=== PATIENT | male | born 1960 | race Caucasian/White ===

== ENCOUNTER → 2016-11-25 | Outpatient (CLI) | payer BC ==
--- NOTE | 2016-11-25 12:18 | REP ---
Clinical: Open wound. Technique: AP and lateral views of the left tibia / fibula. Findings: No acute fracture or dislocation. No significant periosteal reaction. No subcutaneous emphysema or radiodense foreign body. Impression: No obvious acute findings. Signed by Min Montiel MD 11/25/2016 12:09 P
[2016-11-25 15:07] LABS: MEAN CORPUSCULAR HGB CONC 32.3 g/dl (32.0-36.5); MEAN CORPUSCULAR VOLUME 89.8 fl (80.0-96.0); RED CELL DISTRIBUTION WIDTH 15.3 % (11.5-14.5); WHITE BLOOD COUNT 2.8 K/mm3 (4.0-10.0)
[2016-11-25 15:52] LABS: BASOPHILS 1 % (0-4); EOSINOPHILS 3 % (0-5)
[2016-11-25 15:56] LABS: ANISOCYTOSIS 2+; GIANT PLATELETS 1+; PLATELET CLUMPS SMALL AMT
[2016-11-25 15:58] LABS: HYPOCHROMASIA 1+
== END ==
LOC: M WUC 11:48
PROVIDERS: ATTEND Physician Assistant
DX: S81.802A Unspecified open wound, left lower leg, initial encounter (principal); X58.XXXA Exposure to other specified factors, initial encounter; Y93.9 Activity, unspecified; Y92.9 Unspecified place or not applicable; Y99.8 Other external cause status

== ENCOUNTER → 2017-08-14 | Outpatient (REF) | payer BC | LOC: M LAB REF 13:34 | PROVIDERS: ATTEND Internal Medicine Medical Oncology | DX: D70.9 Neutropenia, unspecified (principal) ==

== ENCOUNTER → 2017-09-27 | Outpatient (CLI) | payer BC | LOC: M WUC 12:38 | DX: S92.424A Nondisplaced fracture of distal phalanx of right great toe, initial encounter for closed fracture (principal); X58.XXXA Exposure to other specified factors, initial encounter; Y92.89 Other specified places as the place of occurrence of the external cause; Y93.89 Activity, other specified; Y99.8 Other external cause status | CPT/HCPCS: 73660 ==

== ENCOUNTER → 2018-03-15 | Outpatient (REF) | payer BC | LOC: M LAB REF 18:45 | DX: D70.9 Neutropenia, unspecified (principal) ==

== ENCOUNTER → 2019-06-06 | Outpatient (CLI) | payer BC ==
--- NOTE | 2019-06-06 17:14 | REP ---
Right ribs six views: No rib fracture or other rib abnormality is identified. PA chest two views: There is no pneumothorax, hemothorax or pulmonary contusion. No pleural thickening. The lung leon are clear. Cardiac size normal. The isabell, mediastinum, skeletal structures are unremarkable. Impression: Negative PA chest. Electronically Signed by Segun Beck MD 06/06/2019 05:04 P
== END ==
LOC: M WUC 16:07
PROVIDERS: ATTEND Physician Assistant
DX: S20.211A Contusion of right front wall of thorax, initial encounter (principal); X58.XXXA Exposure to other specified factors, initial encounter; Y92.9 Unspecified place or not applicable

== ENCOUNTER → 2021-04-12 | Outpatient (CLI) | payer OTHER ==
[~2021-04-12] MED LIST: PROAAER10 INH
--- NOTE | 2021-04-12 11:12 | REP ---
INDICATION: PAIN IN LEFT FOOT. Rule out midfoot instability. COMPARISON: No available comparison study.. TECHNIQUE: Helical scanning is acquired and 2 mm axial images re-formatted. Coronal and sagittal MPR images are provided. 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 There is mild tibiotalar osteoarthritis. A fragmented spur is seen at the anterior aspect of the medial malleolus at the ankle. This is chronic. There is a tiny Achilles calcaneal spur. The subtalar articulation is unremarkable. There is an intra-articular chip fracture at the plantar aspect of the proximal end of the 1st metatarsal with some adjacent chip fracture fragments in the adjacent soft tissues. There is a nondisplaced transverse fracture through the mid diaphysis of the 2nd metatarsal. There is a nondisplaced transverse fracture through the proximal diaphysis of the 3rd metatarsal. There is a comminuted fracture in the middle cuneiform bone along its dorsal aspect and involving the articulation with the tarsal navicula. No displacement. The other cuneiform bones appear intact. No navicular, talar, or cuboid fracture is seen. Calcaneus appears intact. Lastly there is osteoarthritis at the 1st metatarsophalangeal articulation. IMPRESSION: Nondisplaced fractures of the 2nd and 3rd metatarsal diaphysis. Comminuted intra-articular fracture of the proximal end of the 1st metatarsal at the 1st MTP joint. Comminuted fracture of the middle cuneiform bone at its articulation with the navicula. 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 Small heel spur. <Electronically signed by Alfred Londono > 04/12/21 [id number]
== END ==
LOC: M RAD 08:10
PROVIDERS: ATTEND Physician Assistant
DX: M79.672 Pain in left foot (principal); S92.325A Nondisplaced fracture of second metatarsal bone, left foot, initial encounter for closed fracture; S92.335A Nondisplaced fracture of third metatarsal bone, left foot, initial encounter for closed fracture; X58.XXXA Exposure to other specified factors, initial encounter; Y92.9 Unspecified place or not applicable

== ENCOUNTER → 2022-10-18 | Outpatient (REF) | payer BC | LOC: M LAB REF 13:34 | PROVIDERS: ATTEND Internal Medicine | DX: D72.819 Decreased white blood cell count, unspecified (principal) ==

== ENCOUNTER → 2022-11-15 | Outpatient (REF) | payer BC | LOC: M WUC 16:09 | PROVIDERS: ATTEND Nurse Practitioner Family | DX: J06.9 Acute upper respiratory infection, unspecified (principal); Z20.828 Contact with and (suspected) exposure to other viral communicable diseases; J20.9 Acute bronchitis, unspecified ==

== ENCOUNTER → 2022-12-02 | Outpatient (REF) | payer BC ==
[2022-12-02 14:12] LABS: ATYPICAL LYMPH 4 % (0-5); BASOPHILS 1 % (0-1); EOSINOPHILS 4 % (0-3); LYMPHOCYTES 45 % (16-44); MONOCYTES 12 % (0-5); NEUTROPHILS 34 % (28-66)
[2022-12-02 14:19] LABS: ANISOCYTOSIS 1+; OVALOCYTES 1+; PLATELET ESTIMATE NORMAL (NORMAL); POIKILOCYTOSIS 1+
== END ==
LOC: M LAB REF 12:02
PROVIDERS: ATTEND Nurse Practitioner Family
DX: C91.90 Lymphoid leukemia, unspecified not having achieved remission (principal); D70.9 Neutropenia, unspecified

== ENCOUNTER → 2022-12-16 | Outpatient (CLI) | payer BC | LOC: M RAD 08:16 | PROVIDERS: ATTEND Internal Medicine | DX: Z12.2 Encounter for screening for malignant neoplasm of respiratory organs (principal); F17.211 Nicotine dependence, cigarettes, in remission; I70.0 Atherosclerosis of aorta; I25.10 Atherosclerotic heart disease of native coronary artery without angina pectoris ==

== ENCOUNTER → 2023-04-26 | Outpatient (REF) | payer BC ==
[2023-04-26 19:01] LABS: ATYPICAL LYMPH 2 % (0-5); BASOPHILS 4 % (0-1); EOSINOPHILS 6 % (0-3); LYMPHOCYTES 32 % (16-44); MONOCYTES 7 % (0-5); NEUTROPHILS 49 % (28-66); PLATELET ESTIMATE NORMAL (NORMAL)
[2023-04-26 19:02] LABS: HYPOCHROMASIA 1+
[2023-04-26 19:03] LABS: OVALOCYTES 1+; POIKILOCYTOSIS 1+
[2023-04-26 19:04] LABS: TEAR DROP CELLS 1+
== END ==
LOC: M LAB REF 16:14
PROVIDERS: ATTEND Internal Medicine
DX: C91.90 Lymphoid leukemia, unspecified not having achieved remission (principal)

== ENCOUNTER 2024-03-25 07:25 | Day surgery (SDC) | payer BC ==
[~2024-03-25] VITALS: Ht 182.9 cm; Wt 84.9 kg
[~2024-03-25 07:25] MED LIST changes: +ALBU8.5H INH; +propofoL 200 MG/20 ML VIAL As Ordered ONE
[2024-03-25] MEDS: NS 1,000 ML IV ONE (07:54)
[2024-03-25 08:57] VITALS: TEMP 97.4
[2024-03-25 09:11] VITALS: BP 111/73; O2SAT 99
== END 2024-03-25 09:19 | disposition home or self-care (01) ==
LOC: M OPP 07:25
PROVIDERS: ATTEND Internal Medicine Gastroenterology
DX: Z12.11 Encounter for screening for malignant neoplasm of colon (principal); Z83.719 Family history of colon polyps, unspecified; K64.0 First degree hemorrhoids; Z79.51 Long term (current) use of inhaled steroids; F17.220 Nicotine dependence, chewing tobacco, uncomplicated

== ENCOUNTER → 2024-05-09 | Outpatient (REF) | payer BC ==
[~2024-05-09] MED LIST changes: -propofoL 200 MG/20 ML VIAL As Ordered ONE
== END ==
LOC: M LAB REF 16:46
PROVIDERS: ATTEND Internal Medicine
DX: R53.83 Other fatigue (principal)

== ENCOUNTER → 2024-09-03 | Outpatient (CLI) | payer BC | LOC: M RAD 14:46 | PROVIDERS: ATTEND Internal Medicine | DX: Z12.2 Encounter for screening for malignant neoplasm of respiratory organs (principal); F17.211 Nicotine dependence, cigarettes, in remission; I70.0 Atherosclerosis of aorta; I25.10 Atherosclerotic heart disease of native coronary artery without angina pectoris ==

== ENCOUNTER → 2025-05-23 | Outpatient (REF) | payer BC | LOC: M LAB REF 12:04 | PROVIDERS: ATTEND Internal Medicine | DX: R53.83 Other fatigue (principal) ==